=== PATIENT | female | born 1970 | race Caucasian/White ===

== ENCOUNTER 2016-10-03 09:55 | Emergency (ER) | payer MEDICAID ==
[~2016-10-03] VITALS: Ht 177.8 cm; Wt 106.6 kg
[2016-10-03 09:59] VITALS: BP 138/79; PULSE 74; RESP 20; TEMP 97.8; O2SAT 97
--- NOTE | 2016-10-03 10:04 | NUR ---
Pt placed to ER bed 06, report given to FREDERIC Salmon.
--- NOTE | 2016-10-03 10:14 | NUR ---
DR. SANCHEZ AT BEDSIDE
--- NOTE | 2016-10-03 10:16 | NUR ---
Pt presenst to Ed c/o L ear pain x 2 days unrelieved w/tyl#3. Pt h/o cardiac surg.
[2016-10-03 10:32] VITALS: BP 131/68; PULSE 85; RESP 16; TEMP 97.8; O2SAT 99
--- NOTE | 2016-10-03 10:32 | NUR ---
Patient given written and verbal discharge instructions and verbalizes understanding. ER MD discussed with patient the results and treatment provided. Given copies of tests performed in ER. Patient in stable condition. ID arm band removed. Rx of NORCO, AUGMENTIN, FLONASE given. Patient educated on pain management and to follow up with PMD. Pain Scale 0/10. Opportunity for questions provided and answered.
== END 2016-10-03 10:31 | disposition home or self-care (01) ==
LOC: SED 09:55
DX: J01.10 Acute frontal sinusitis, unspecified (principal); J01.00 Acute maxillary sinusitis, unspecified; H92.02 Otalgia, left ear; R03.0 Elevated blood-pressure reading, without diagnosis of hypertension; Z95.1 Presence of aortocoronary bypass graft
CPT/HCPCS: 99283